=== PATIENT | female | born 1940 | race Two or more races ===

== ENCOUNTER 2017-04-11 08:33 | Outpatient (CLI) | payer OTHER | END 2017-04-11 08:39 | disposition home or self-care (01) | LOC: SONOGRAMA 08:33 | DX: N85.00 Endometrial hyperplasia, unspecified (principal) ==

== ENCOUNTER 2017-08-17 11:17 | Outpatient (CLI) | payer OTHER | END 2017-08-17 17:37 | disposition home or self-care (01) | LOC: NUCLEAR 11:17 | DX: M81.0 Age-related osteoporosis without current pathological fracture (principal) ==

== ENCOUNTER 2021-01-25 08:00 | Outpatient (CLI) | payer OTHER ==
[2021-03-25] MEDS ORDERED: DICLOFENAC POTA50 MG PO (11:35)
== END 2021-01-25 08:30 | disposition home or self-care (01) ==
LOC: PPH VACUNA 08:00
PROVIDERS: ATTEND Emergency Medicine Pediatric Emergency Medicine
DX: Z23 Encounter for immunization (principal)

== ENCOUNTER 2021-04-14 14:23 | Outpatient (CLI) | payer OTHER ==
[~2021-04-14 14:23] MED LIST: DICLOFENAC POTA50 MG PO
[2021-05-11] MEDS ORDERED: TORADOL60 MG IM (10:16)
[2021-05-11] MEDS ORDERED: METHOCARBAMOL750 MG PO (10:16)
== END 2021-04-14 15:00 | disposition home or self-care (01) ==
LOC: NUCLEAR 14:23
PROVIDERS: ATTEND Internal Medicine Rheumatology
DX: M81.0 Age-related osteoporosis without current pathological fracture (principal)